=== PATIENT | male | born 1955 | race Caucasian/White ===

== ENCOUNTER 2018-07-03 09:41 | Observation (INO) | payer SELFPAY ==
[2018-07-03 10:14] LABS: #Basophils 0.1 thou/uL (0.0-0.2); #Eosinphils 0.1 thou/uL (0.0-0.7); #Lymphocytes 2.2 thou/uL (1.20-3.40); #Monocytes 0.6 thou/uL (0.11-0.59); #Neutrophils 4.2 thou/uL (1.40-6.50); %Basophils 0.8 % (0.0-1.0); %Eosinophils 1.2 % (0.0-10.0); %Lymphocytes 30.9 % (21.0-51.0); %Monocytes 7.7 % (0.0-10.0); %Neutrophils 59.4 % (42.0-75.0); Hemoglobin 15.4 g/dL (14.0-18.0); Mean Corpuscular Hemoglobin 31.8 pg (27.0-31.0); Mean Corpuscular Volume 93.4 fL (78.0-98.0); Mean Platelet Volume 6.8 fL (7.4-10.4); Platelet Count 264 thou/uL (130-400); RBC Distribution Width 12.6 % (11.5-14.5); Red Blood Cell (RBC) Count 4.86 mill/uL (4.70-6.10); White Blood Cell (WBC) Count 7.1 thou/uL (4.8-10.8)
[2018-07-03 10:37] LABS: ALT (SGPT) 40 U/L (8-55); AST (SGOT) 26 U/L (5-34); Albumin 4.4 g/dL (3.4-4.8); Alkaline Phosphatase 93 U/L (40-150); Anion Gap 15 mmol/L (10-20); BUN (Urea Nitrogen) 16 mg/dL (8.4-25.7); Bilirubin, Total 0.7 mg/dL (0.2-1.2); CK (CPK) 118 U/L (30-200); Calc. Creatinine Clearance 0 mL/min (70-130); Calcium 9.8 mg/dL (7.8-10.44); Carbon Dioxide 23 mmol/L (23-31); Chloride 104 mmol/L (98-107); Estimated GFR-MDRD Greater than 90; Globulin 2.6 g/dL (2.4-3.5); Glucose 120 mg/dL (80-115); Potassium 4.6 mmol/L (3.5-5.1); Sodium 137 mmol/L (136-145)
[2018-07-03] MEDS ORDERED: Nitroglycerin 2% Ointment 1 INCH/1 GM Packet ONE (10:57)
--- NOTE | 2018-07-03 11:05 | RAD ---
TWO VIEWS CHEST: DATE: 07/03/2018. PROVIDED CLINICAL HISTORY: Chest pain. FINDINGS: Comparison 02/16/2015. Cardiac and mediastinal silhouette is within normal limits. No focal consolidation, pleural fluid, o r pneumothorax apparent. IMPRESSION: No evidence for an acute cardiopulmonary process. POS: OFF
[2018-07-03] MEDS ORDERED: Aspirin Chewable 81 MG TAB ONE (11:37)
--- NOTE | 2018-07-03 11:38 | PDOC.FPRHP ---
- History of Present Illness Chief Complaint: Chest pain History of Present Illness: Pt started having chest pain at 0330 this am, waking him from sleep. Pain resolved after 3-4 minutes after walking around. He waited at home at became worries about pain, additionally felt slightly lightheaded and "dingy". He feels tired as well. He had pain at the center of his chest that was deep and sharp without radiation. He denies having that pain before. He denies SOB, nausea, vomiting. Dr. Duncan saw him last month that states that he needed a stent. He reports 2 weeks ago he had numbness on the right side of his head, he blames it on pinched nerves. Has not recurred. ED Course: aspirin, nitro 1" - Allergies/Adverse Reactions Allergies Allergy/AdvReac Type Severity Reaction Status Date / Time No Known Allergies Allergy Verified 07/03/18 17:05 - Home Medications Medication Instructions Recorded Confirmed Type Aspirin 81 mg PO DAILY #0 tab 02/18/15 07/03/18 Rx Gabapentin 300 mg PO QPM #30 capsule 02/18/15 07/03/18 Rx Atorvastatin Calcium 40 mg PO HS 07/03/18 07/03/18 History Carvedilol 3.125 mg PO BID 07/03/18 07/03/18 History Lisinopril [Zestril] 2.5 mg PO DAILY 07/03/18 07/03/18 History Acetaminophen [Tylenol Regular 650 mg PO Q4H PRN tab 07/04/18 Rx Strength] Nicotine [Nicoderm CQ] 14 mg TD Q24HR patch 07/04/18 Rx - History PMHx: HTN, HFrEF (45% per patient) PSHx: Appendix, left wrist surgery FHx: Father at 47 CHF, Mother 50s from breast cancer, sister 61 brain cancer, Brother has DM2 Social: 2 cigars daily. Drinks 6-12 pack a day for years, last drink yesterday. Has never withdrawn and says at time he will go 2-3 days without drinking without issues. Denies current drug use. - Review of Systems General: denies: fever/chills, weight/appetite/sleep changes, night sweats Eyes: denies: vision changes ENT: denies: nasal congestion, rhinorrhea Respiratory: denies: cough, shortness of breath Cardiovascular: reports: chest pain. denies: palpitation Gastrointestinal: denies: nausea, vomiting, diarrhea, constipation Genitourinary: denies: dysuria Skin: denies: rashes, lesions Musculoskeletal: reports: pain (neck and shoulder pain) Neurological: denies: numbness - Vital signs BP: 149/99 HR: 82 RR: 16 Tmax: 97.9 Pox: 95% on ra Wt:108 kg - Physical Exam Constitutional: NAD, awake, alert and oriented, well developed HEENT: normocephalic and atraumatic, EOMI, MMM Neck: trachea midline, no JVD Chest: no-tender to palpation Heart: RRR, normal S1/S2, no murmurs/rubs/gallops, no edema Lungs: CTAB, no respiratory distress Abdomen: soft, non-tender, bowel sounds present Musculoskeletal: normal structure, normal tone Neurological: no focal deficit Skin: no rash/lesions, good turgor Psychiatric: normal mood and affect, good judgment and insight, intact recent and remote memory FMR H&P: Results - Labs Result Diagrams: 07/03/18 09:55 07/03/18 09:55 Lab results: WBC 7.1 thou/uL (4.8-10.8) 07/03/18 09:55 Hgb 15.4 g/dL (14.0-18.0) 07/03/18 09:55 Hct 45.4 % (42.0-52.0) 07/03/18 09:55 MCV 93.4 fL (78.0-98.0) 07/03/18 09:55 Plt Count 264 thou/uL (130-400) 07/03/18 09:55 Neutrophils % 59.4 % (42.0-75.0) 07/03/18 09:55 Sodium 137 mmol/L (136-145) 07/03/18 09:55 Potassium 4.6 mmol/L (3.5-5.1) 07/03/18 09:55 Chloride 104 mmol/L (98-107) 07/03/18 09:55 Carbon Dioxide 23 mmol/L (23-31) 07/03/18 09:55 BUN 16 mg/dL (8.4-25.7) 07/03/18 09:55 Creatinine 0.82 mg/dL (0.7-1.3) 07/03/18 09:55 Glucose 120 mg/dL (80-115) H 07/03/18 09:55 Calcium 9.8 mg/dL (7.8-10.44) 07/03/18 09:55 Total Bilirubin 0.7 mg/dL (0.2-1.2) 07/03/18 09:55 AST 26 U/L (5-34) 07/03/18 09:55 ALT 40 U/L (8-55) 07/03/18 09:55 Alkaline Phosphatase 93 U/L (40-150) 07/03/18 09:55 Creatine Kinase 118 U/L (30-200) 07/03/18 09:55 B-Natriuretic Peptide 11.6 pg/mL (0-100) 07/03/18 09:56 Serum Total Protein 7.0 g/dL (5.8-8.1) 07/03/18 09:55 Albumin 4.4 g/dL (3.4-4.8) 07/03/18 09:55 FMR H&P: A/P - Problem List (1) Atypical chest pain Status: Acute Code(s): R07.89 - OTHER CHEST PAIN (2) Alcohol abuse Status: Chronic Code(s): F10.10 - ALCOHOL ABUSE, UNCOMPLICATED (3) HTN (hypertension) Status: Chronic Code(s): I10 - ESSENTIAL (PRIMARY) HYPERTENSION - Plan This is a 63 yo male with a pmh of HTN, HFrEF that presents for brief episode of chest pain and is admitted for observation. Atypical chest pain - Pain resolved -Trend troponins, first one negative - Heart score 3 - EKG with no acute changes - Consult pt's wire straightener, Dr. Duncan, as patient says he planned to stent him. - Will consider stress, hold carvedilol if stressed HTN -Continue home lisinopril HFrEF -Old Echo, EF 45% - at home on carvedilol, statin, aspirin Alcohol abuse - ASE protocol Chronic neck pain - continue home gabapentin Code: Full Prophylaxis: Lovenox Family: none at bedside Diet: NPO Disposition: admit to telemetry for observation, expected stay <48hrs PCP: Dr. Franco, [facility] Case discussed with Dr. Love FMR H&P: Upper Level - Pertinent history HPI 63 y/o M with hx/o of CHF, ETOH, drug use, & tobacco abuse presents with c/o chest pain that began last night, lasted states that it was significantly worse this morning. Has been waking up in the middle of the night with mild pain and last night was worse. Described as sharp, deep substernal pain lasting approximately 2-3 minutes. Associated with dizziness, diaphoresis. Denies nausea , SOB. Given ASA and Nitro in ED with mild improvement. REVIEW OF SYSTEMS: Gen: no fever, chills, or sweats, no unexplained wt change Resp: no cough, no SOB, no wheeze Card: POS chest pain, diaphoresis, no palpitations - Pertinent findings PHYSICAL EXAMINATION: General: NAD, alert and oriented x3 HEENT: PERRLA, EOMI, normal sclera, oropharynx without erythema or exudate Neck: Supple. Full ROM. Heart/Cardiovascular System: No r/m/g. RRR. Cap refill < 3 seconds, good pulses in all extremities Lungs/Respiratory System: clear to auscultation bilaterally. No increased work of breathing. Room air. Abdomen/Gastro-Intestinal System: non-tender, normal bowel sounds Extremities: Warm extremities. No cyanosis or edema. Neuro: No gross deficits appreciated. CN 2-12 grossly intact Psychiatry: Awake, Alert and cooperative with exam Skin: No lesions, rashes, or ulcers Musculoskeletal: Full ROM, Strength 5/5 in all 4 extremities - Plan Date/Time: 07/03/18 6847 I, Pankaj Galvan, have evaluated this patient and agree with findings/plan as outlined by customer operations intern resident. Pertinent changes/additions are listed here. PROBLEM LISTANDPLAN: # Atypical Chest Pain- Pain resolved after 3-4 minutes and vitals stable. S/p ASA and Nitro administration. ED has consulted cardiology. Trops negative, will trend, no acute ST changes. # HFrEF- ECHO 45% in 2015. Sees Dr Duncan and will ask his recommendations. # ETOH Abuse- ASE protocol, Medications as needed # Tobacco Abuse- Counseled on Cessation. Addendum - Attending - Attending Attestation Date/Time: 07/03/18 [id number] I personally evaluated the patient and discussed the management with Dr. Lorenz and Dr. Galvan I agree with the History, Examination, Assessment and Plan documented above with any addition or exceptions noted below. 63 yo male presenting for evaluation of chest pain. Patient reports a history of positive stress test in the past with need for stenting. Reports has been noticing slight chest discomfort in the access services assistant hours. However, this morning reports chest pain that woke him from sleep. Has history of heart failure. Follows with cards. Pain resolved with getting up. No other associated symptoms. Reports able to physical labor without CELESTIN, chest pain, dizziness, palpitations. Reports he is limited by chronic back pain. VS, imaging and labs reviewed. PE repeated and agree with resident documentation. 1. Chest pain suspicious for angina. Obs overnight for ASC rule out. No evidence of ischemia at present. Stress and ECHO ordered. Cards notified. Continue cardiac medications. ASA added for ACS rule out. Fasting lipids in AM. Continue home meds. Modify as needed. Ghislaine
[2018-07-03] MEDS ORDERED: Ondansetron PF 4 MG/2 ML Vial IVP PRN (12:52)
[2018-07-03] MEDS ORDERED: Acetaminophen 325 MG TAB PO PRN (12:52)
[2018-07-03] MEDS ORDERED: Ondansetron ODT 4 MG TAB PO PRN (12:52)
[2018-07-03 13:17] VITALS: BMI 31.3
[2018-07-03 13:50] LABS: Troponin I Less than 0.010 ng/mL (< 0.028)
[2018-07-03 16:20] LABS: Amphetamine Not Detected (NotDetected); Barbiturates Screen Not Detected (NotDetected); Benzodiazepine Screen Not Detected (NotDetected); Cocaine Metabolite Screen Not Detected (NotDetected); Medtox Control Line Valid? VALID (VALID); Medtox Reader # READER 4; Methadone Not Detected (NotDetected); Methamphetamine Not Detected (NotDetected); Opiate Screen Not Detected (NotDetected); Oxycodone Screen Not Detected (NotDetected); Phencyclidine (PCP) Not Detected (NotDetected); THC/Cannabinoid Screen Not Detected (NotDetected); Tricyclic Screen Not Detected (NotDetected)
[2018-07-03 16:38] LABS: Troponin I Less than 0.010 ng/mL (< 0.028)
[2018-07-03] MEDS ORDERED: Gabapentin 300 MG CAP PO SCH (21:00)
[2018-07-03] MEDS ORDERED: Nicotine 14 MG PATCH TD SCH (21:00)
--- NOTE | 2018-07-03 22:34 | CON ---
DATE OF CONSULTATION: PRIMARY DRAW FURNACE TENDER: Aftab Duncan MD REASON FOR CONSULTATION: Chest pain. HISTORY OF PRESENT ILLNESS: Mr. Alex Galloway is a pleasant 63-year-old gentleman, admitted with chest pain. The patient has a history of a cardiomyopathy in 2014 , had depressed left ventricular function, is ultimately thought to be related in all likelihood to alcohol consumption. The patient made changes lifestyl, he reduced alcohol intake and had improvement in left ventricular function. He was recently seen by Dr. Duncan, 05/21/2018. The patient was doing well, not having chest pain or tightness or pressure. The patient was asymptomatic at that time. The patient tells me that Dr. Duncan told him that he would need to do a heart catheterization, but I do not see that documented from that report. The patient has been doing well up until this morning, had the onset of severe substernal chest pain in the middle of his chest, came to the emergency room. Cardiac enzymes have been negative. I do not see discussion in the chart about the possibility of proceeding to cardiac catheterization. HOME MEDICATIONS: Include; 1. Lisinopril 2.5 mg a day. 2. Gabapentin. 3. Aspirin 81 mg a day. 4. Carvedilol 3.125 mg twice a day. PAST MEDICAL HISTORY: Hypertension, history of heart failure as mentioned above. PAST SURGICAL HISTORY: Appendectomy. FAMILY HISTORY: Mother at age 51, not cardiac related. Father at age 52, he had a myocardial infarction. SOCIAL HISTORY: Tobacco history, he continues to smoke some days, but not every day, about 5 or less, on occasion. The patient states he occasionally drinks "socially." REVIEW OF SYSTEMS: CONSTITUTIONAL: No significant weight gain or loss. VISION: No changes. HEARING: No changes. PULMONARY: No cough or wheezing. GASTROINTESTINAL: No nausea, vomiting, or diarrhea. SKIN: No rashes. NEUROLOGIC: No unilateral weakness or numbness. PSYCHIATRIC: No unusual depression or anxiety. PHYSICAL EXAMINATION: GENERAL: This is a pleasant, well-developed, well-nourished gentleman, in no distress. VITAL SIGNS: Blood pressure 115/66, pulse 70 and regular. LUNGS: Clear. CARDIAC: Normal S1, normal S2. ABDOMEN: Soft, nontender. EXTREMITIES: No clubbing, no cyanosis or edema. SKIN: Warm and dry. PSYCHIATRIC: Mood and affect normal. NEUROLOGIC: Grossly normal. LABORATORY DATA: Cardiac enzymes were all negative. IMAGING: EKGs are normal. ASSESSMENT: 1. Substernal chest pain of uncertain etiology. 2. History of cardiomyopathy, resolved. PLAN: We will go ahead and schedule stress testing, echocardiography. Dr. Duncan to see the patient tomorrow morning. Job ID: [id number] MTDD
--- NOTE | 2018-07-04 06:36 | PDOC.FM ---
- Subjective Subjective: Mr. Galloway denies any recurrent chest pain. No SOB or any other concerns. Had 10 beats V tach overnight while sleeping, asymptomatic. - Objective Vital Signs & Weight: Vital Signs (12 hours) Temp Pulse Resp BP Pulse Ox 07/04/18 03:47 97.6 F 61 16 117/63 93 L 07/03/18 19:10 97.6 F 75 16 109/72 94 L Weight Weight 100.199 kg Result Diagrams: 07/03/18 09:55 07/03/18 09:55 Phys Exam - Physical Examination Constitutional: NAD HEENT: moist MMs Respiratory: no wheezing, clear to auscultation bilateral Cardiovascular: RRR, no significant murmur Gastrointestinal: soft, non-tender, positive bowel sounds Musculoskeletal: no edema Neurological: non-focal Psychiatric: normal affect Skin: normal turgor Dx/Plan (1) Atypical chest pain Code(s): R07.89 - OTHER CHEST PAIN Status: Acute (2) Alcohol abuse Code(s): F10.10 - ALCOHOL ABUSE, UNCOMPLICATED Status: Chronic (3) HTN (hypertension) Code(s): I10 - ESSENTIAL (PRIMARY) HYPERTENSION Status: Chronic - Plan Plan: This is a 63 yo male with a pmh of HTN, HFrEF that presents for brief episode of chest pain and is admitted for observation. Atypical chest pain, resolved - Pain resolved. Heart score 3 - EKG with no acute changes, trop negative - 10 beats asymptomatic V tach overnight - Appreciate cardiology recommendations. Plan for stress and echo today. HTN -Continue home lisinopril HFrEF -Old Echo, EF 45% - at home on carvedilol (held), statin, aspirin Alcohol abuse - ASE protocol Chronic neck pain - continue home gabapentin Code: Full Prophylaxis: Lovenox Diet: NPO Disposition: pending workup PCP: LETICIA Dos Santos Addendum - Attending - Attending Attestation Date/Time: 07/04/18 1101 I personally evaluated the patient and discussed the management with Dr. Lorenz. I agree with the History, Examination, Assessment and Plan documented above with any addition or exceptions noted below. Patient here with ACS r/o in the setting of CHF with reduced EF. Cardiology consulted. Stress and echo today. Had Vtach overnight. Awaiting results and further recs per Cards. Trops negative and BNP reassuring that this is not ACS or exacerbation of CHF related.
[2018-07-04] MEDS ORDERED: Lisinopril 2.5 MG TAB PO SCH (09:00)
[2018-07-04] MEDS ORDERED: Aspirin Chewable 81 MG TAB PO SCH (09:00)
[2018-07-04] MEDS ORDERED: Atorvastatin Calcium 40 MG TAB PO SCH (09:00)
[2018-07-04] MEDS ORDERED: Enoxaparin Sodium 40 MG/0.4 ML SYRINGE SC SCH (09:00)
[2018-07-04] MEDS ORDERED: ADENOSINE 60 MG/20 ML VIAL ONE (11:26)
--- NOTE | 2018-07-04 13:44 | NM ---
Radionucleotide stress and rest myocardial perfusion scan with CT attenuation correction and SPECT im aging Left ventricular wall motion evaluation and ejection fraction HISTORY: Chest pain. FINDINGS: Adenosine protocol. Homogeneous uptake of radiotracer throughout the left ventricular myoca rdium. No focal perfusion defect or reversibility. QGS analysis of gated SPECT images shows no focal wall motion abnormalities. Ejection fraction calcul ated at 46%. IMPRESSION: Normal myocardial perfusion scan showing no evidence of ischemia. Slightly depressed ejection fraction of 46% without focal wall motion abnormalities.
[2018-07-04 15:36] VITALS: BP 137/80; TEMP 97.8
--- NOTE | 2018-07-04 20:39 | PDOC.CTH ---
Cardiology Progress Note - Subjective he is doing well. Chest pain free. - Objective Vital Signs Temp Pulse Resp BP Pulse Ox 07/04/18 15:07 97.8 F 68 16 137/80 95 07/04/18 12:45 97.5 F L 68 16 159/84 H 96 Weight 220 lb 14.4 oz 07/03/18 07/04/18 07/05/18 06:59 06:59 06:59 Intake Total 240 Balance 240 - Physical Examination General/Neuro: alert & oriented x3, NAD Neck: no JVD present Lungs: CTA, unlabored respirations Heart: RRR Abdomen: NT/ND Extremities: other: (no edema) - Telemetry Telemetry Rhythm: NSR - Labs Result Diagrams: 07/03/18 09:55 07/03/18 09:55 Troponin/CKMB Troponin I Less than 0.010 ng/mL (< 0.028) 07/03/18 15:59 - Assessment/Plan 1. Chest pain, atypical. PLAN: - No ischemia on MPI - EF normal on echo - Currently chest pain free, no recurrence since initial episode. - He may discharge home. - If recurrence of chest pain then he will need a LHC.
--- NOTE | 2018-07-05 11:29 | DIS ---
DATE OF ADMISSION: 07/03/2018 DATE OF DISCHARGE: 07/04/2018 RESIDENT: Yamilka Lorenz DO ADMITTING ATTENDING: Maru Love MD DISCHARGE ATTENDING: Iam Daly MD CONSULT: Cardiology, Dr. Duncan. PROCEDURES: 1. 07/03/2018, chest x-ray showed no evidence of acute cardiopulmonary process. 2. 07/04/2018, nuclear medicine stress test showed normal myocardial perfusion scan showing no evidence of ischemia, slightly depressed ejection fraction of 46% without focal wall motion abnormalities. 3. 07/04/2018, echocardiogram showed ejection fraction of 50% to 55%, grade 1/3 diastolic dysfunction, mildly dilated left atrium, mild mitral regurgitation, and mild tricuspid regurgitation. PRIMARY DIAGNOSIS: Atypical chest pain. SECONDARY DIAGNOSES: Hypertension, heart failure with reduced ejection fraction, alcohol abuse, and chronic neck pain. DISCHARGE MEDICATIONS: 1. Aspirin 81 mg p.o. daily. 2. Gabapentin 300 mg p.o. q.p.m. 3. Atorvastatin 40 mg p.o. at bedtime. 4. Carvedilol 3.125 mg p.o. b.i.d. 5. Lisinopril 2.5 mg p.o. daily. 6. Acetaminophen 650 mg p.o. q.4 hours p.r.n. HISTORY OF PRESENT ILLNESS: A 63-year-old male with past medical history of hypertension and CHF, presented for a 3-4 minute period of chest pain that resolved after ambulating and had initially woke him up from his sleep. After hours of waiting at home wandering and being concerned, he decided to present to the ER for evaluation. The patient reported that Dr. Duncan saw him last month and said that he needed a "stent." He was admitted for atypical chest pain and ACS rule out. Troponins were trended and negative. He had no chest pain at any point during the hospitalization and EKG did not show any acute changes. The patient underwent stress test and echocardiogram with results noted above. Dr. Duncan reviewed these results and said he was stable for discharge home. He said if recurrence of chest pain, then he will need LHC. DISPOSITION: Stable. DISCHARGE INSTRUCTIONS: 1. Location: Home. 2. Diet: Heart healthy. 3. Activity: As tolerated. 4. Followup: Follow up with Dr. Duncan in 2 to 3 weeks. Follow up with [facility] in 1 week. Job ID: [id number]
== END 2018-07-04 17:22 | disposition home or self-care (01) ==
LOC: ERS 09:41 → 2SW 11:04
PROVIDERS: ADMIT Student in an Organized Health Care Education/Training Program; ATTEND Student in an Organized Health Care Education/Training Program
DX: R07.2 Precordial pain (principal); I11.0 Hypertensive heart disease with heart failure; I50.20 Unspecified systolic (congestive) heart failure; F17.290 Nicotine dependence, other tobacco product, uncomplicated; F10.10 Alcohol abuse, uncomplicated; G89.29 Other chronic pain; M54.2 Cervicalgia; I42.9 Cardiomyopathy, unspecified; Z79.82 Long term (current) use of aspirin; Z79.899 Other long term (current) drug therapy
CPT/HCPCS: 36415; 71046; 78452; 80053; 80306; 82550; 83880; 84484; 85025; 93005; 93017; 93306; 96372; A9500; G0378; J0153; J1650

== ENCOUNTER 2023-05-03 16:31 | Observation (INO) | payer MEDICARE, SELFPAY ==
[2023-05-03 17:39] LABS: #Eosinphils 0.1 thou/uL (0.0-0.7); #Monocytes 0.6 thou/uL (0.11-0.59); #Neutrophils 6.2 thou/uL (1.40-6.50); %Basophils 0.3 % (0.0-1.0); %Eosinophils 1.3 % (0.0-10.0); %Lymphocytes 20.8 % (21.0-51.0); %Monocytes 6.7 % (0.0-10.0); %Neutrophils 70.7 % (42.0-75.0); Hematocrit 41.8 % (42.0-52.0); Mean Corpuscular HGB CONC 33.5 g/dL (32.0-36.0); Mean Corpuscular Hemoglobin 30.4 pg (27.0-31.0); Mean Corpuscular Volume 90.7 fl (78.0-98.0); Mean Platelet Volume 9.4 fL (7.4-10.4); Platelet Count 299 10x3/uL (130-400); RBC Distribution Width 13.6 % (11.5-14.5); Red Blood Cell (RBC) Count 4.61 mill/uL (4.70-6.10); White Blood Cell (WBC) Count 8.7 10x3/uL (4.8-10.8)
[2023-05-03 17:53] LABS: PTT 31.3 sec (22.9-36.1); Prothrombin Time 13.5 sec (12.0-14.7)
[2023-05-03 17:59] LABS: ALT (SGPT) 21 U/L (8-55); AST (SGOT) 23 U/L (5-34); Albumin 3.5 g/dL (3.4-4.8); Alkaline Phosphatase 81 U/L (40-110); Anion Gap 14 mmol/L (10-20); BUN (Urea Nitrogen) 19 mg/dL (8.4-25.7); Bilirubin, Total 0.4 mg/dL (0.2-1.2); Calc. Creatinine Clearance 0 mL/min (70-130); Calcium 8.7 mg/dL (7.8-10.44); Carbon Dioxide 20 mmol/L (23-31); Chloride 108 mmol/L (98-107); Estimated GFR 102; Globulin 2.4 g/dL (2.4-3.5); Glucose 112 mg/dL (80-115); Potassium 4.3 mmol/L (3.5-5.1); Protein, Total 5.9 g/dL (5.8-8.1); Sodium 138 mmol/L (136-145)
[2023-05-03 18:04] LABS: Troponin I 0.048 ng/mL (< 0.028)
[2023-05-03] MEDS ORDERED: Furosemide 20 MG (2 mL) VIAL ONE (18:12)
[2023-05-03 19:46] LABS: Hemoglobin A1c 5.4 % (4.0-6.0)
[2023-05-03] MEDS ORDERED: Lorazepam 1 MG TAB PO PRN (19:49)
[2023-05-03] MEDS ORDERED: Lorazepam 2 MG/ML VIAL IM PRN (19:49)
[2023-05-03] MEDS ORDERED: Carvedilol 25 MG TAB PO SCH (21:00)
[2023-05-03] MEDS ORDERED: Carvedilol 3.125 MG TAB PO SCH (21:00)
[2023-05-03] MEDS ORDERED: Ibuprofen 200 MG TAB PO PRN (21:34)
[2023-05-03 21:40] LABS: Alcohol Less than 10.0 mg/dL (Less than 10); Cardiac Risk 3.7 (Less than 4.5); Cholesterol 198 mg/dl (< 200 Desired); HDL Cholesterol 53 mg/dL (>60 Neg Risk); LDL Cholesterol, Calculated 125 mg/dL; Triglycerides 100 mg/dL (Less than 150)
[2023-05-03 21:45] LABS: Troponin I 0.035 ng/mL (< 0.028)
[2023-05-03] MEDS: Nicotine 21 MG PATCH TD SCH (22:46)
[2023-05-03] MEDS ORDERED: Diazepam 5 MG TAB ONE (23:04)
[2023-05-03] MEDS ORDERED: Atorvastatin Calcium 40 MG TAB ONE (23:05)
[2023-05-03] MEDS ORDERED: Thiamine HCl 200 MG/2 ML VIAL ONE (23:05)
[2023-05-03] MEDS ORDERED: Famotidine 20 MG TAB ONE (23:05)
[2023-05-03] MEDS: Diazepam 5 MG TAB PO SCH (23:29)
[2023-05-03] MEDS: Atorvastatin Calcium 40 MG TAB PO SCH (23:30)
[2023-05-03] MEDS: Famotidine 20 MG TAB PO SCH (23:30)
[2023-05-03] MEDS: Thiamine HCl 200 MG/2 ML VIAL SLOW IVP SCH (23:38)
[2023-05-04] MEDS ORDERED: Furosemide 40 MG (4 mL) VIAL ONE (00:28)
[2023-05-04] MEDS: Ipratropium/Albuterol 3 ML NEB NEB SCH (00:38)
[2023-05-04] MEDS ORDERED: Acetaminophen 325 MG TAB ONE (00:41)
[2023-05-04] MEDS: Furosemide 40 MG (4 mL) VIAL SLOW IVP SCH (00:48)
[2023-05-04] MEDS: Acetaminophen 325 MG TAB PO PRN (00:48)
[2023-05-04] MEDS ORDERED: Furosemide 40 MG (4 mL) VIAL SLOW IVP SCH (02:00)
[2023-05-04 04:17] LABS: #Eosinphils 0.2 thou/uL (0.0-0.7); #Monocytes 0.7 thou/uL (0.11-0.59); #Neutrophils 4.5 thou/uL (1.40-6.50); %Basophils 0.4 % (0.0-1.0); %Eosinophils 2.2 % (0.0-10.0); %Lymphocytes 34.2 % (21.0-51.0); %Monocytes 8.5 % (0.0-10.0); %Neutrophils 54.5 % (42.0-75.0); Hematocrit 44.9 % (42.0-52.0); Hemoglobin 15.1 g/dL (14.0-18.0); Mean Corpuscular HGB CONC 33.6 g/dL (32.0-36.0); Mean Corpuscular Hemoglobin 30.4 pg (27.0-31.0); Mean Corpuscular Volume 90.5 fl (78.0-98.0); Mean Platelet Volume 9.5 fL (7.4-10.4); Platelet Count 288 10x3/uL (130-400); RBC Distribution Width 13.5 % (11.5-14.5); Red Blood Cell (RBC) Count 4.96 mill/uL (4.70-6.10); White Blood Cell (WBC) Count 8.2 10x3/uL (4.8-10.8)
[2023-05-04] MEDS: Diclofenac 1% 50 GM TOPICAL GEL TP PRN (04:29)
[2023-05-04] MEDS ORDERED: Ondansetron ODT 4 MG TAB ONE (04:40)
[2023-05-04] MEDS: Ondansetron ODT 4 MG TAB PO PRN (04:42)
[2023-05-04 04:57] LABS: ALT (SGPT) 20 U/L (8-55); AST (SGOT) 21 U/L (5-34); Albumin 3.7 g/dL (3.4-4.8); Alkaline Phosphatase 88 U/L (40-110); Anion Gap 15 mmol/L (10-20); BUN (Urea Nitrogen) 20 mg/dL (8.4-25.7); Bilirubin, Total 0.6 mg/dL (0.2-1.2); Calc. Creatinine Clearance 108 mL/min (70-130); Carbon Dioxide 24 mmol/L (23-31); Chloride 104 mmol/L (98-107); Estimated GFR 97; Globulin 2.7 g/dL (2.4-3.5); Glucose 106 mg/dL (80-115); Potassium 3.6 mmol/L (3.5-5.1); Protein, Total 6.4 g/dL (5.8-8.1); Sodium 139 mmol/L (136-145)
[2023-05-04] MEDS ORDERED: Diazepam 5 MG TAB ONE (09:52)
[2023-05-04] MEDS ORDERED: Lisinopril 20 MG TAB ONE (09:52)
[2023-05-04] MEDS ORDERED: Aspirin Chewable 81 MG TAB ONE (09:52)
[2023-05-04] MEDS ORDERED: Folic Acid 1 MG TAB ONE (09:52)
[2023-05-04] MEDS ORDERED: Furosemide 20 MG (2 mL) VIAL ONE (09:52)
[2023-05-04] MEDS ORDERED: Famotidine 20 MG TAB ONE (09:53)
[2023-05-04] MEDS ORDERED: Multivit, Therapeutic 1 TAB ONE (09:53)
[2023-05-04] MEDS ORDERED: Carvedilol 6.25 MG TAB ONE (09:53)
[2023-05-04] MEDS ORDERED: Enoxaparin 40 MG (0.4 mL) SYRINGE ONE (09:53)
[2023-05-04] MEDS: Carvedilol 6.25 MG TAB PO SCH (10:18)
[2023-05-04] MEDS: Aspirin 81 mg Enteric Coated Tablet PO SCH (10:18)
[2023-05-04] MEDS: Diazepam 5 MG TAB PO SCH (10:19)
[2023-05-04] MEDS: Multivit, Therapeutic 1 TAB PO SCH (10:20)
[2023-05-04] MEDS: Enoxaparin 40 MG (0.4 mL) SYRINGE SC SCH (10:21)
[2023-05-04] MEDS: Lisinopril 20 MG TAB PO SCH (10:21)
[2023-05-04] MEDS: Furosemide 20 MG (2 mL) VIAL SLOW IVP SCH (10:21)
[2023-05-04] MEDS: Folic Acid 1 MG TAB PO SCH (10:21)
[2023-05-04] MEDS: Empagliflozin 10 MG TAB PO SCH (10:28)
[2023-05-04 14:23] VITALS: BMI 22.5
[2023-05-04 16:47] VITALS: BP 116/75; TEMP 97.6
[2023-05-04] MEDS ORDERED: Lorazepam 1 MG TAB PO PRN (19:49)
[2023-05-05] MEDS ORDERED: Furosemide 20 MG TAB PO SCH (09:00)
[2023-05-05] MEDS ORDERED: Lorazepam 1 MG TAB PO PRN (19:49)
[2023-05-06] MEDS ORDERED: Lorazepam 0.5 MG TAB PO PRN (19:49)
[2023-05-06] MEDS ORDERED: Thiamine 100 MG TAB PO SCH (20:00)
== END 2023-05-04 18:09 | disposition home or self-care (01) ==
LOC: ERS 16:31 → ERHOLD 18:53 → 2SW 05-04 14:10
PROVIDERS: ADMIT Student in an Organized Health Care Education/Training Program; ATTEND Student in an Organized Health Care Education/Training Program
PROC: B246ZZZ Ultrasonography of Right and Left Heart (ICD-10-PCS; principal; 2023-05-03)
DX: I11.0 Hypertensive heart disease with heart failure (principal); I50.20 Unspecified systolic (congestive) heart failure; R79.89 Other specified abnormal findings of blood chemistry; I42.8 Other cardiomyopathies; I71.21 Aneurysm of the ascending aorta, without rupture; F15.90 Other stimulant use, unspecified, uncomplicated; E78.5 Hyperlipidemia, unspecified; F32.9 Major depressive disorder, single episode, unspecified; Z90.49 Acquired absence of other specified parts of digestive tract; F17.210 Nicotine dependence, cigarettes, uncomplicated; Z79.82 Long term (current) use of aspirin; Z79.899 Other long term (current) drug therapy
CPT/HCPCS: 36415; 71045; 71250; 80053; 80061; 80307; 83036; 83880; 84145; 84443; 84484; 85025; 85610; 85730; 87040; 93005; 93306; 94640; 96372; 96375; 96376; G0378; J1650; J1940; J3411; J7620; Q0162

== ENCOUNTER 2024-04-09 17:33 | Inpatient (IN) | payer MEDICARE ==
[2024-04-09 18:48] LABS: #Basophils 0.04 10x3/uL (0.0-0.2); %Basophils 0.5 % (0.0-1.0); %Eosinophils 1.8 % (0.0-10.0); %Lymphocytes 30.8 % (21.0-51.0); %Monocytes 7.3 % (0.0-10.0); %Neutrophils 59.1 % (42.0-75.0); Hematocrit 37.9 % (42.0-52.0); Hemoglobin 12.6 g/dL (14.0-18.0); Mean Corpuscular HGB CONC 33.2 g/dL (32.0-36.0); Mean Corpuscular Volume 90.2 fL (78.0-98.0); Mean Platelet Volume 9.5 fL (7.4-10.4); Platelet Count 300 10x3/uL (130-400); RBC Distribution Width 13.2 % (11.5-14.5)
[2024-04-09 19:07] LABS: ALT (SGPT) 43 U/L (Less than 45); AST (SGOT) 42 U/L (11-34); Albumin 3.4 g/dL (3.1-4.5); Alkaline Phosphatase 82 U/L (40-110); Anion Gap 13 mmol/L (10-20); BUN (Urea Nitrogen) 16 mg/dL (8.4-25.7); Bilirubin, Total 0.6 mg/dL (0.3-1.2); Calc. Creatinine Clearance 0 mL/min (70-130); Calcium 8.9 mg/dL (7.8-10.44); Carbon Dioxide 20 mmol/L (23-31); Chloride 109 mmol/L (98-107); Estimated GFR 101; Globulin 2.9 g/dL (2.4-3.5); Glucose 91 mg/dL (80-115); Potassium 4.5 mmol/L (3.5-5.1); Protein, Total 6.3 g/dL (5.8-8.1); Sodium 137 mmol/L (136-145)
[2024-04-09 19:10] LABS: Troponin I 0.032 ng/mL (< 0.028)
[2024-04-09] MEDS ORDERED: Furosemide 40 MG (4 mL) VIAL ONE (20:06)
[2024-04-09] MEDS ORDERED: Nitroglycerin 2% Ointment 1 INCH/1 GM Packet ONE (20:07)
[2024-04-09] MEDS ORDERED: Aspirin Chewable 81 MG TAB ONE (20:07)
[2024-04-09] MEDS ORDERED: Ondansetron ODT 4 MG TAB PO PRN (21:14)
[2024-04-09 22:24] VITALS: BMI 24.7
[2024-04-09 23:50] LABS: Troponin I 0.038 ng/mL (< 0.028)
[2024-04-10 04:07] LABS: #Basophils 0.03 10x3/uL (0.0-0.2); %Basophils 0.4 % (0.0-1.0); %Eosinophils 1.8 % (0.0-10.0); %Lymphocytes 32.7 % (21.0-51.0); %Monocytes 9.8 % (0.0-10.0); %Neutrophils 55.2 % (42.0-75.0); Hematocrit 38.6 % (42.0-52.0); Hemoglobin 12.9 g/dL (14.0-18.0); Mean Corpuscular HGB CONC 33.4 g/dL (32.0-36.0); Mean Corpuscular Hemoglobin 30.3 pg (27.0-31.0); Mean Corpuscular Volume 90.6 fL (78.0-98.0); Mean Platelet Volume 9.6 fL (7.4-10.4); Platelet Count 323 10x3/uL (130-400); RBC Distribution Width 13.1 % (11.5-14.5); Red Blood Cell (RBC) Count 4.26 mill/uL (4.70-6.10)
[2024-04-10 04:33] LABS: Anion Gap 14 mmol/L (10-20); BUN (Urea Nitrogen) 17 mg/dL (8.4-25.7); Calc. Creatinine Clearance 110 mL/min (70-130); Calcium 8.8 mg/dL (7.8-10.44); Carbon Dioxide 22 mmol/L (23-31); Chloride 105 mmol/L (98-107); Estimated GFR 100; Glucose 83 mg/dL (80-115); Potassium 3.8 mmol/L (3.5-5.1); Sodium 137 mmol/L (136-145)
[2024-04-10 04:37] LABS: Troponin I 0.036 ng/mL (< 0.028)
[2024-04-10] MEDS: Enoxaparin 40 MG (0.4 mL) SYRINGE SC SCH (09:19)
[2024-04-10] MEDS: Spironolactone 25 MG TAB PO SCH (09:19)
[2024-04-10] MEDS: Gabapentin 300 MG CAP PO SCH (09:20)
[2024-04-10] MEDS: Famotidine 20 MG TAB PO SCH (09:20)
[2024-04-10] MEDS: Sacubitril 24MG/Valsartan 26 MG TAB PO SCH (09:20)
[2024-04-10] MEDS: Furosemide 40 MG TAB PO SCH (09:20)
[2024-04-10] MEDS: Dapagliflozin Propanediol 10 MG TAB PO SCH (09:20)
[2024-04-10] MEDS: Acetaminophen 325 MG TAB PO PRN (09:20)
[2024-04-10 09:52] VITALS: BMI 24.2
[2024-04-10] MEDS ORDERED: Metoprolol Succinate XL 25 MG ER.TAB PO SCH (11:15)
[2024-04-10 12:26] LABS: Amphetamine Detected (NotDetected); Barbiturates Screen Not Detected (NotDetected); Benzodiazepine Screen Not Detected (NotDetected); Cocaine Metabolite Screen Not Detected (NotDetected); Methadone Not Detected (NotDetected); Methamphetamine Detected (NotDetected); Opiate Screen Not Detected (NotDetected); Oxycodone Screen Not Detected (NotDetected); Phencyclidine (PCP) Not Detected (NotDetected); THC/Cannabinoid Screen Not Detected (NotDetected); Tricyclic Screen Not Detected (NotDetected)
[2024-04-10] MEDS ORDERED: Furosemide 40 MG (4 mL) VIAL SLOW IVP SCH (14:00)
[2024-04-10] MEDS: Furosemide 40 MG (4 mL) VIAL SLOW IVP SCH (14:08)
[2024-04-10] MEDS: Carvedilol 3.125 MG TAB PO SCH (16:39)
[2024-04-10] MEDS: Atorvastatin Calcium 40 MG TAB PO SCH (20:43)
[2024-04-11 04:18] LABS: #Basophils 0.03 10x3/uL (0.0-0.2); %Basophils 0.4 % (0.0-1.0); %Eosinophils 1.4 % (0.0-10.0); %Lymphocytes 39.4 % (21.0-51.0); %Monocytes 8.9 % (0.0-10.0); %Neutrophils 49.5 % (42.0-75.0); Hematocrit 46.6 % (42.0-52.0); Hemoglobin 15.4 g/dL (14.0-18.0); Mean Corpuscular Hemoglobin 29.6 pg (27.0-31.0); Mean Corpuscular Volume 89.6 fL (78.0-98.0); Mean Platelet Volume 9.4 fL (7.4-10.4); Platelet Count 385 10x3/uL (130-400); RBC Distribution Width 13.2 % (11.5-14.5)
[2024-04-11 04:32] LABS: Anion Gap 13 mmol/L (10-20); BUN (Urea Nitrogen) 30 mg/dL (8.4-25.7); Calc. Creatinine Clearance 92 mL/min (70-130); Calcium 9.2 mg/dL (7.8-10.44); Carbon Dioxide 25 mmol/L (23-31); Chloride 104 mmol/L (98-107); Estimated GFR 96; Glucose 102 mg/dL (80-115); Potassium 3.9 mmol/L (3.5-5.1); Sodium 138 mmol/L (136-145)
[2024-04-11] MEDS ORDERED: Furosemide 40 MG (4 mL) VIAL SLOW IVP SCH ×2 (06:00)
[2024-04-11] MEDS ORDERED: Metoprolol Succinate XL 25 MG ER.TAB PO SCH (09:00)
[2024-04-11] MEDS: Furosemide 40 MG (4 mL) VIAL SLOW IVP SCH (09:26)
[2024-04-12 06:15] LABS: #Basophils 0.03 10x3/uL (0.0-0.2); %Basophils 0.4 % (0.0-1.0); %Eosinophils 1.6 % (0.0-10.0); %Lymphocytes 40.7 % (21.0-51.0); %Monocytes 8.1 % (0.0-10.0); %Neutrophils 48.8 % (42.0-75.0); Hematocrit 46.6 % (42.0-52.0); Hemoglobin 15.5 g/dL (14.0-18.0); Mean Corpuscular HGB CONC 33.3 g/dL (32.0-36.0); Mean Corpuscular Volume 90.1 fL (78.0-98.0); Mean Platelet Volume 9.4 fL (7.4-10.4); Platelet Count 383 10x3/uL (130-400); RBC Distribution Width 13.2 % (11.5-14.5); Red Blood Cell (RBC) Count 5.17 mill/uL (4.70-6.10)
[2024-04-12 06:28] LABS: Anion Gap 13 mmol/L (10-20); BUN (Urea Nitrogen) 34 mg/dL (8.4-25.7); Calc. Creatinine Clearance 92 mL/min (70-130); Carbon Dioxide 25 mmol/L (23-31); Chloride 103 mmol/L (98-107); Estimated GFR 96; Glucose 102 mg/dL (80-115); Potassium 4.3 mmol/L (3.5-5.1); Sodium 137 mmol/L (136-145)
[2024-04-12] MEDS: Furosemide 20 MG (2 mL) VIAL SLOW IVP SCH (08:11)
[2024-04-12] MEDS: Lisinopril 10 MG TAB PO SCH (14:28)
[2024-04-12] MEDS: Lactated Ringer's 500 ML IV SCH (21:48)
[2024-04-12 22:16] LABS: Phosphorus 4.7 mg/dL (2.5-4.5)
[2024-04-12 22:17] LABS: Anion Gap 13 mmol/L (10-20); BUN (Urea Nitrogen) 39 mg/dL (8.4-25.7); Calc. Creatinine Clearance 63 mL/min (70-130); Calcium 8.5 mg/dL (7.8-10.44); Carbon Dioxide 24 mmol/L (23-31); Chloride 101 mmol/L (98-107); Estimated GFR 66; Glucose 103 mg/dL (80-115); Lactic Acid 1.61 mmol/L (0.50-2.20); Magnesium 2.2 mg/dL (1.6-2.6); Potassium 3.9 mmol/L (3.5-5.1); Sodium 134 mmol/L (136-145)
[2024-04-12 22:23] LABS: Troponin I 0.025 ng/mL (< 0.028)
[2024-04-13 05:18] LABS: #Basophils Less than 0.03 10x3/uL (0.0-0.2); %Basophils 0.2 % (0.0-1.0); %Eosinophils 1.6 % (0.0-10.0); %Lymphocytes 31.1 % (21.0-51.0); %Monocytes 7.3 % (0.0-10.0); %Neutrophils 59.6 % (42.0-75.0); Hematocrit 42.6 % (42.0-52.0); Hemoglobin 14.2 g/dL (14.0-18.0); Mean Corpuscular HGB CONC 33.3 g/dL (32.0-36.0); Mean Corpuscular Hemoglobin 29.9 pg (27.0-31.0); Mean Corpuscular Volume 89.7 fL (78.0-98.0); Mean Platelet Volume 9.7 fL (7.4-10.4); Platelet Count 352 10x3/uL (130-400); RBC Distribution Width 13.2 % (11.5-14.5); Red Blood Cell (RBC) Count 4.75 mill/uL (4.70-6.10)
[2024-04-13 05:33] LABS: Anion Gap 12 mmol/L (10-20); BUN (Urea Nitrogen) 33 mg/dL (8.4-25.7); Calc. Creatinine Clearance 83 mL/min (70-130); Calcium 8.5 mg/dL (7.8-10.44); Carbon Dioxide 25 mmol/L (23-31); Chloride 103 mmol/L (98-107); Estimated GFR 92; Glucose 95 mg/dL (80-115); Potassium 4.1 mmol/L (3.5-5.1); Sodium 136 mmol/L (136-145)
[2024-04-13] MEDS ORDERED: Furosemide 20 MG (2 mL) VIAL SLOW IVP SCH (09:00)
[2024-04-13] MEDS ORDERED: Lisinopril 10 MG TAB PO SCH (09:00)
[2024-04-13] MEDS: HYDROcodone/Acetaminophen 5/325 mg Tablet PO SCH (23:34)
[2024-04-14 04:45] LABS: #Basophils 0.03 10x3/uL (0.0-0.2); %Basophils 0.4 % (0.0-1.0); %Eosinophils 2.4 % (0.0-10.0); %Lymphocytes 50.5 % (21.0-51.0); %Monocytes 6.9 % (0.0-10.0); %Neutrophils 39.5 % (42.0-75.0); Hematocrit 39.2 % (42.0-52.0); Hemoglobin 12.8 g/dL (14.0-18.0); Mean Corpuscular HGB CONC 32.7 g/dL (32.0-36.0); Mean Corpuscular Volume 91.8 fL (78.0-98.0); Mean Platelet Volume 9.6 fL (7.4-10.4); Platelet Count 295 10x3/uL (130-400); RBC Distribution Width 13.1 % (11.5-14.5); Red Blood Cell (RBC) Count 4.27 mill/uL (4.70-6.10)
[2024-04-14 05:07] LABS: Anion Gap 12 mmol/L (10-20); BUN (Urea Nitrogen) 28 mg/dL (8.4-25.7); Calc. Creatinine Clearance 102 mL/min (70-130); Calcium 8.4 mg/dL (7.8-10.44); Carbon Dioxide 25 mmol/L (23-31); Chloride 105 mmol/L (98-107); Estimated GFR 99; Glucose 88 mg/dL (80-115); Potassium 4.5 mmol/L (3.5-5.1); Sodium 137 mmol/L (136-145)
[2024-04-14 17:28] VITALS: BP 120/70; TEMP 98.7
[2024-04-15] MEDS ORDERED: Lisinopril 2.5 MG TAB PO SCH (09:00)
== END 2024-04-14 18:16 | disposition home or self-care (01) | DRG 291 ==
LOC: ERS 17:33 → INTOOBSV 21:17 → 2NO 21:17 → OBSVTOIN 04-11 07:42
PROVIDERS: ADMIT Family Medicine; ATTEND Family Medicine
DX: I11.0 Hypertensive heart disease with heart failure (principal); I50.23 Acute on chronic systolic (congestive) heart failure; I42.8 Other cardiomyopathies; F10.10 Alcohol abuse, uncomplicated; F15.10 Other stimulant abuse, uncomplicated; D63.8 Anemia in other chronic diseases classified elsewhere; I95.9 Hypotension, unspecified; I44.30 Unspecified atrioventricular block; Z79.02 Long term (current) use of antithrombotics/antiplatelets; Z79.899 Other long term (current) drug therapy; Z90.49 Acquired absence of other specified parts of digestive tract; Z91.148 Patient's other noncompliance with medication regimen for other reason
CPT/HCPCS: 36415; 71046; 80048; 80053; 80306; 80307; 83605; 83735; 83880; 84100; 84145; 84484; 85025; 87428; 93005; 93010; 93798; 96372; 96374; 96376; G0378; J1650; J1940; J7120

== ENCOUNTER 2024-10-13 21:22 | Inpatient (IN) | payer MEDICARE ==
[~2024-10-13 21:22] MED LIST: Iopamidol-370 76% 500 ML MDV (1 ML CHARGE) ONE
[2024-10-13 21:49] LABS: #Basophils 0.06 10x3/uL (0.0-0.2); #Eosinophils 0.06 10x3/uL (0.0-0.7); #Monocytes 1.01 10x3/uL (0.11-0.59); #Neutrophils 7.82 10x3/uL (1.40-6.50); %Basophils 0.5 % (0.0-1.0); %Eosinophils 0.5 % (0.0-10.0); %Lymphocytes 19.7 % (21.0-51.0); %Monocytes 9.0 % (0.0-10.0); %Neutrophils 69.9 % (42.0-75.0); Hematocrit 41.7 % (42.0-52.0); Hemoglobin 13.6 g/dL (14.0-18.0); Mean Corpuscular Hemoglobin 29.9 pg (27.0-31.0); Mean Corpuscular Volume 91.6 fL (78.0-98.0); Platelet Count 483 10x3/uL (130-400); Red Blood Cell (RBC) Count 4.55 mill/uL (4.70-6.10); White Blood Cell (WBC) Count 11.21 10x3/uL (4.8-10.8)
[2024-10-13 22:08] LABS: ALT (SGPT) 102 U/L (Less than 45); AST (SGOT) 98 U/L (11-34); Albumin 3.2 g/dL (3.1-4.5); Alkaline Phosphatase 597 U/L (40-110); Anion Gap 18 mmol/L (10-20); BUN (Urea Nitrogen) 29 mg/dL (8.4-25.7); Bilirubin, Total 0.7 mg/dL (0.3-1.2); Calc. Creatinine Clearance 0 mL/min (70-130); Calcium 9.2 mg/dL (7.8-10.44); Carbon Dioxide 24 mmol/L (23-31); Chloride 97 mmol/L (98-107); Globulin 4.3 g/dL (2.4-3.5); Glucose 148 mg/dL (80-115); Magnesium 2.3 mg/dL (1.6-2.6); Potassium 3.4 mmol/L (3.5-5.1); Sodium 136 mmol/L (136-145)
[2024-10-13 22:09] LABS: INR-International Normal Ratio 1.3; PTT 41.0 sec (22.9-36.1); Prothrombin Time 16.3 sec (12.0-14.7)
[2024-10-13] MEDS ORDERED: dilTIAZem 25 MG/5 ML VIAL ONE (22:23)
[2024-10-13] MEDS ORDERED: Acetaminophen 325 MG TAB PO PRN (23:36)
[2024-10-13] MEDS ORDERED: Furosemide 20 MG (2 mL) VIAL ONE (23:57)
[2024-10-14 00:34] VITALS: BMI 24.1
[2024-10-14] MEDS ORDERED: Diltiazem HCl/D5W 125 MG in Premix 1 BAG IVPB SCH (00:45)
[2024-10-14] MEDS: Enoxaparin 80 MG (0.8 mL) SYRINGE SC SCH (00:54)
[2024-10-14 02:22] LABS: Cocaine Metabolite Screen Negative (Negative); THC/Cannabinoid Screen Negative (Negative); Tricyclic Screen Negative (Negative)
[2024-10-14 03:45] LABS: #Basophils 0.06 10x3/uL (0.0-0.2); #Eosinophils 0.12 10x3/uL (0.0-0.7); #Monocytes 0.95 10x3/uL (0.11-0.59); #Neutrophils 6.95 10x3/uL (1.40-6.50); %Basophils 0.6 % (0.0-1.0); %Eosinophils 1.1 % (0.0-10.0); %Lymphocytes 22.7 % (21.0-51.0); %Monocytes 9.1 % (0.0-10.0); %Neutrophils 66.2 % (42.0-75.0); Hematocrit 35.5 % (42.0-52.0); Hemoglobin 11.7 g/dL (14.0-18.0); Mean Corpuscular Hemoglobin 30.1 pg (27.0-31.0); Mean Corpuscular Volume 91.3 fL (78.0-98.0); Platelet Count 359 10x3/uL (130-400); Red Blood Cell (RBC) Count 3.89 mill/uL (4.70-6.10); White Blood Cell (WBC) Count 10.49 10x3/uL (4.8-10.8)
[2024-10-14 04:00] LABS: INR-International Normal Ratio 1.4; PTT 52.0 sec (22.9-36.1); Prothrombin Time 17.0 sec (12.0-14.7)
[2024-10-14 04:02] LABS: Cardiac Risk 5.3 (Less than 4.5); Cholesterol 139.0 mg/dl (< 200 Desired); HDL Cholesterol 26.0 mg/dL (>60 Neg Risk); LDL Cholesterol, Calculated 98.0 mg/dL; Triglycerides 74.0 mg/dL (Less than 150)
[2024-10-14 04:03] LABS: ALT (SGPT) 82 U/L (Less than 45); AST (SGOT) 66 U/L (11-34); Albumin 2.5 g/dL (3.1-4.5); Alkaline Phosphatase 477 U/L (40-110); Anion Gap 15 mmol/L (10-20); BUN (Urea Nitrogen) 23 mg/dL (8.4-25.7); Bilirubin, Total 0.8 mg/dL (0.3-1.2); Calc. Creatinine Clearance 112 mL/min (70-130); Calcium 8.1 mg/dL (7.8-10.44); Carbon Dioxide 23 mmol/L (23-31); Chloride 101 mmol/L (98-107); Globulin 3.2 g/dL (2.4-3.5); Glucose 94 mg/dL (80-115); Potassium 3.4 mmol/L (3.5-5.1); Sodium 136 mmol/L (136-145)
[2024-10-14 07:46] LABS: Magnesium 2.0 mg/dL (1.6-2.6)
[2024-10-14] MEDS: Folic Acid 1 MG TAB PO SCH (08:09)
[2024-10-14] MEDS: Multivit, Therapeutic 1 TAB PO SCH (08:09)
[2024-10-14] MEDS: Transdermal Patch Removal TOP SCH (13:22)
[2024-10-14] MEDS: Furosemide 100 MG (10 mL) VIAL SLOW IVP SCH (20:25)
[2024-10-14 22:48] LABS: #Basophils 0.04 10x3/uL (0.0-0.2); #Eosinophils Less than 0.03 10x3/uL (0.0-0.7); #Monocytes 0.83 10x3/uL (0.11-0.59); #Neutrophils 7.56 10x3/uL (1.40-6.50); %Basophils 0.4 % (0.0-1.0); %Eosinophils 0.1 % (0.0-10.0); %Lymphocytes 11.3 % (21.0-51.0); %Monocytes 8.7 % (0.0-10.0); %Neutrophils 78.8 % (42.0-75.0); Hematocrit 42.7 % (42.0-52.0); Hemoglobin 14.0 g/dL (14.0-18.0); Mean Corpuscular Hemoglobin 30.7 pg (27.0-31.0); Mean Corpuscular Volume 93.6 fL (78.0-98.0); Platelet Count 521 10x3/uL (130-400); Red Blood Cell (RBC) Count 4.56 mill/uL (4.70-6.10); White Blood Cell (WBC) Count 9.59 10x3/uL (4.8-10.8)
[2024-10-14 22:53] LABS: Actual Bicarbonate (HCO3v) 21.7 mEq/L (22-28); Base Excess -4.3 mEq/L (-2.0 to +3.0); Calcium, Ionized (venous) 1.06 mmol/L (1.16-1.32); Chloride (VBG) 99 mmol/L (98-106); Hematocrit-VBG 44 % (42.0-52.0); Hemoglobin (Hb) 14.9 g/dL (12.6-17.4); Potassium (VBG) 4.42 mmol/L (3.70-5.30); Sodium 135 mmol/L (133-146)
[2024-10-14 23:00] LABS: ALT (SGPT) 1052 U/L (Less than 45); AST (SGOT) 1442 U/L (11-34); Albumin 2.9 g/dL (3.1-4.5); Alkaline Phosphatase 554 U/L (40-110); Anion Gap 20 mmol/L (10-20); BUN (Urea Nitrogen) 30 mg/dL (8.4-25.7); Bilirubin, Total 1.5 mg/dL (0.3-1.2); Calc. Creatinine Clearance 78 mL/min (70-130); Calcium 8.7 mg/dL (7.8-10.44); Carbon Dioxide 20 mmol/L (23-31); Chloride 101 mmol/L (98-107); Globulin 3.6 g/dL (2.4-3.5); Glucose 138 mg/dL (80-115); Magnesium 2.4 mg/dL (1.6-2.6); Potassium 4.7 mmol/L (3.5-5.1); Sodium 136 mmol/L (136-145)
[2024-10-15 00:21] LABS: CAUTI Indications for Culture Fever or rigors; Glucose, Urine (Dipstick) 150 mg/dL (Negative); Leukocyte Negative Leu/uL (Negative); Protein, Urine (Dipstick) Negative (Neg-Trace); RBC/HPF 0-3 HPF (0-3); Specific Gravity, Urine 1.006 (1.002-1.036); WBC/HPF None Seen HPF (0-3)
[2024-10-15 00:25] LABS: Bacteria/HPF 1+ HPF (None Seen)
[2024-10-15 00:26] LABS: Urine Culture Reflex No No
[2024-10-15] MEDS: cefTRIAXone\\ROCEPHIN 2 GM in Sodium Chloride 0.9% 100 ML IVPB SCH (00:31)
[2024-10-15] MEDS: Melatonin 3 MG TAB PO SCH (00:43)
[2024-10-15 03:43] LABS: ALT (SGPT) 2223 U/L (Less than 45); AST (SGOT) 3935 U/L (11-34); Albumin 2.6 g/dL (3.1-4.5); Alkaline Phosphatase 496 U/L (40-110); Anion Gap 18 mmol/L (10-20); BUN (Urea Nitrogen) 31 mg/dL (8.4-25.7); Bilirubin, Total 1.0 mg/dL (0.3-1.2); Calc. Creatinine Clearance 85 mL/min (70-130); Calcium 8.2 mg/dL (7.8-10.44); Carbon Dioxide 22 mmol/L (23-31); Chloride 101 mmol/L (98-107); Globulin 3.3 g/dL (2.4-3.5); Glucose 109 mg/dL (80-115); Magnesium 2.1 mg/dL (1.6-2.6); Potassium 3.7 mmol/L (3.5-5.1); Sodium 137 mmol/L (136-145)
[2024-10-15 03:45] LABS: #Basophils Less than 0.03 10x3/uL (0.0-0.2); #Eosinophils Less than 0.03 10x3/uL (0.0-0.7); #Monocytes 0.80 10x3/uL (0.11-0.59); #Neutrophils 8.73 10x3/uL (1.40-6.50); %Basophils 0.2 % (0.0-1.0); %Eosinophils 0.1 % (0.0-10.0); %Lymphocytes 12.6 % (21.0-51.0); %Monocytes 7.3 % (0.0-10.0); %Neutrophils 79.2 % (42.0-75.0); Hematocrit 37.8 % (42.0-52.0); Hemoglobin 12.3 g/dL (14.0-18.0); Mean Corpuscular Hemoglobin 29.6 pg (27.0-31.0); Mean Corpuscular Volume 91.1 fL (78.0-98.0); Platelet Count 390 10x3/uL (130-400); Red Blood Cell (RBC) Count 4.15 mill/uL (4.70-6.10); White Blood Cell (WBC) Count 11.02 10x3/uL (4.8-10.8)
[2024-10-15 04:24] LABS: Hep A IgM AB NONREACTIVE (NonReactive); Hep A IgM S/CO 0.19 S/CO (0-0.79); Hep B Core IgM Index 0.09 S/CO (0-0.79); Hep B Surf Ag NONREACTIVE S/CO (NonReactive); Hep C IgG Ab NONREACTIVE S/CO (NonReactive); Hep C Index 0.06 S/CO (0-0.79)
[2024-10-15] MEDS: Furosemide 40 MG (4 mL) VIAL SLOW IVP SCH ×2 (06:16→13:14)
[2024-10-15 11:38] LABS: INR-International Normal Ratio 1.5; PTT 43.2 sec (22.9-36.1); Prothrombin Time 18.3 sec (12.0-14.7)
[2024-10-15] MEDS: Enoxaparin 80 MG (0.8 mL) SYRINGE SC SCH ×2 (13:14→21:14)
[2024-10-15] MEDS: Carvedilol 3.125 MG TAB PO SCH (17:00)
[2024-10-16 06:03] LABS: #Basophils 0.06 10x3/uL (0.0-0.2); #Eosinophils 0.19 10x3/uL (0.0-0.7); #Monocytes 0.43 10x3/uL (0.11-0.59); #Neutrophils 5.05 10x3/uL (1.40-6.50); %Basophils 0.8 % (0.0-1.0); %Eosinophils 2.7 % (0.0-10.0); %Lymphocytes 18.9 % (21.0-51.0); %Monocytes 6.1 % (0.0-10.0); %Neutrophils 71.1 % (42.0-75.0); Hematocrit 38.2 % (42.0-52.0); Hemoglobin 12.3 g/dL (14.0-18.0); Mean Corpuscular Hemoglobin 29.7 pg (27.0-31.0); Mean Corpuscular Volume 92.3 fL (78.0-98.0); Platelet Count 393 10x3/uL (130-400); Red Blood Cell (RBC) Count 4.14 mill/uL (4.70-6.10); White Blood Cell (WBC) Count 7.10 10x3/uL (4.8-10.8)
[2024-10-16 06:09] LABS: INR-International Normal Ratio 1.5; PTT 39.0 sec (22.9-36.1); Prothrombin Time 17.8 sec (12.0-14.7)
[2024-10-16 06:19] LABS: ALT (SGPT) 1642 U/L (Less than 45); AST (SGOT) 1522 U/L (11-34); Albumin 2.5 g/dL (3.1-4.5); Alkaline Phosphatase 391 U/L (40-110); Anion Gap 12 mmol/L (10-20); BUN (Urea Nitrogen) 26 mg/dL (8.4-25.7); Bilirubin, Total 0.6 mg/dL (0.3-1.2); Calc. Creatinine Clearance 94 mL/min (70-130); Calcium 7.8 mg/dL (7.8-10.44); Carbon Dioxide 26 mmol/L (23-31); Chloride 103 mmol/L (98-107); Globulin 2.8 g/dL (2.4-3.5); Glucose 97 mg/dL (80-115); Magnesium 1.9 mg/dL (1.6-2.6); Potassium 3.1 mmol/L (3.5-5.1); Sodium 138 mmol/L (136-145)
[2024-10-16] MEDS: Potassium Chloride 20 MEQ in Premix 1 BAG IVPB SCH (09:49)
[2024-10-16] MEDS: Transdermal Patch Removal TOP SCH (10:02)
[2024-10-16] MEDS: Aspirin 81 mg Enteric Coated Tablet PO SCH ×2 (10:07→10:12)
[2024-10-16] MEDS: Dapagliflozin Propanediol 10 MG TAB PO SCH ×2 (10:07→10:13)
[2024-10-16] MEDS: Melatonin 3 MG TAB PO PRN (21:48)
[2024-10-17 05:31] LABS: #Basophils 0.05 10x3/uL (0.0-0.2); #Eosinophils 0.34 10x3/uL (0.0-0.7); #Monocytes 0.70 10x3/uL (0.11-0.59); #Neutrophils 5.17 10x3/uL (1.40-6.50); %Basophils 0.6 % (0.0-1.0); %Eosinophils 4.0 % (0.0-10.0); %Lymphocytes 25.9 % (21.0-51.0); %Monocytes 8.2 % (0.0-10.0); %Neutrophils 60.7 % (42.0-75.0); Hematocrit 41.1 % (42.0-52.0); Hemoglobin 13.0 g/dL (14.0-18.0); Mean Corpuscular Hemoglobin 29.2 pg (27.0-31.0); Mean Corpuscular Volume 92.4 fL (78.0-98.0); Platelet Count 410 10x3/uL (130-400); Red Blood Cell (RBC) Count 4.45 mill/uL (4.70-6.10); White Blood Cell (WBC) Count 8.51 10x3/uL (4.8-10.8)
[2024-10-17 05:36] LABS: INR-International Normal Ratio 1.3; PTT 39.6 sec (22.9-36.1); Prothrombin Time 16.6 sec (12.0-14.7)
[2024-10-17 05:56] LABS: ALT (SGPT) 1738 U/L (Less than 45); AST (SGOT) 1282 U/L (11-34); Albumin 2.7 g/dL (3.1-4.5); Alkaline Phosphatase 350 U/L (40-110); Anion Gap 13 mmol/L (10-20); BUN (Urea Nitrogen) 22 mg/dL (8.4-25.7); Bilirubin, Total 0.6 mg/dL (0.3-1.2); Calc. Creatinine Clearance 100 mL/min (70-130); Calcium 8.2 mg/dL (7.8-10.44); Carbon Dioxide 29 mmol/L (23-31); Chloride 102 mmol/L (98-107); Globulin 3.0 g/dL (2.4-3.5); Glucose 99 mg/dL (80-115); Magnesium 2.1 mg/dL (1.6-2.6); Potassium 3.2 mmol/L (3.5-5.1); Sodium 141 mmol/L (136-145)
[2024-10-17] MEDS: Thiamine 100 MG TAB PO SCH (09:08)
[2024-10-17] MEDS: PNEUMOC 20-VAL CONJ-DIP CRM/PF 0.5 ML SYRINGE IM ONE (09:11)
[2024-10-17 11:44] LABS: dsDNA IgG Antibody 1.0 IU/mL (<10 Negative)
[2024-10-17 12:42] LABS: ANA Symphony (Qualitative) Negative (Negative); ANA Symphony (Quantitative) Less than 0.1 Ratio (< 0.7 Negative)
[2024-10-18 04:45] LABS: #Basophils 0.05 10x3/uL (0.0-0.2); #Eosinophils 0.25 10x3/uL (0.0-0.7); #Monocytes 0.68 10x3/uL (0.11-0.59); #Neutrophils 3.58 10x3/uL (1.40-6.50); %Basophils 0.7 % (0.0-1.0); %Eosinophils 3.6 % (0.0-10.0); %Lymphocytes 34.2 % (21.0-51.0); %Monocytes 9.7 % (0.0-10.0); %Neutrophils 50.9 % (42.0-75.0); Hematocrit 43.2 % (42.0-52.0); Hemoglobin 13.8 g/dL (14.0-18.0); Mean Corpuscular Hemoglobin 29.2 pg (27.0-31.0); Mean Corpuscular Volume 91.3 fL (78.0-98.0); Platelet Count 400 10x3/uL (130-400); Red Blood Cell (RBC) Count 4.73 mill/uL (4.70-6.10); White Blood Cell (WBC) Count 7.02 10x3/uL (4.8-10.8)
[2024-10-18 05:01] LABS: INR-International Normal Ratio 1.3; PTT 37.8 sec (22.9-36.1); Prothrombin Time 16.8 sec (12.0-14.7)
[2024-10-18 05:12] LABS: ALT (SGPT) 1938 U/L (Less than 45); AST (SGOT) 1575 U/L (11-34); Albumin 2.8 g/dL (3.1-4.5); Alkaline Phosphatase 313 U/L (40-110); Anion Gap 15 mmol/L (10-20); BUN (Urea Nitrogen) 30 mg/dL (8.4-25.7); Bilirubin, Total 0.5 mg/dL (0.3-1.2); Calc. Creatinine Clearance 100 mL/min (70-130); Calcium 8.6 mg/dL (7.8-10.44); Carbon Dioxide 29 mmol/L (23-31); Chloride 102 mmol/L (98-107); Globulin 3.2 g/dL (2.4-3.5); Glucose 87 mg/dL (80-115); Magnesium 2.1 mg/dL (1.6-2.6); Potassium 3.4 mmol/L (3.5-5.1); Sodium 143 mmol/L (136-145)
[2024-10-19 04:48] LABS: #Basophils 0.05 10x3/uL (0.0-0.2); #Eosinophils 0.30 10x3/uL (0.0-0.7); #Monocytes 0.62 10x3/uL (0.11-0.59); #Neutrophils 4.12 10x3/uL (1.40-6.50); %Basophils 0.7 % (0.0-1.0); %Eosinophils 3.9 % (0.0-10.0); %Lymphocytes 33.2 % (21.0-51.0); %Monocytes 8.1 % (0.0-10.0); %Neutrophils 53.6 % (42.0-75.0); Hematocrit 45.4 % (42.0-52.0); Hemoglobin 14.6 g/dL (14.0-18.0); Mean Corpuscular Hemoglobin 29.3 pg (27.0-31.0); Mean Corpuscular Volume 91.0 fL (78.0-98.0); Platelet Count 421 10x3/uL (130-400); Red Blood Cell (RBC) Count 4.99 mill/uL (4.70-6.10); White Blood Cell (WBC) Count 7.68 10x3/uL (4.8-10.8)
[2024-10-19 05:05] LABS: INR-International Normal Ratio 1.1; PTT 39.0 sec (22.9-36.1); Prothrombin Time 14.8 sec (12.0-14.7)
[2024-10-19 05:13] LABS: ALT (SGPT) 1914 U/L (Less than 45); AST (SGOT) 1350 U/L (11-34); Albumin 3.0 g/dL (3.1-4.5); Alkaline Phosphatase 293 U/L (40-110); Anion Gap 15 mmol/L (10-20); BUN (Urea Nitrogen) 32 mg/dL (8.4-25.7); Bilirubin, Total 0.5 mg/dL (0.3-1.2); Calc. Creatinine Clearance 86 mL/min (70-130); Calcium 9.1 mg/dL (7.8-10.44); Carbon Dioxide 27 mmol/L (23-31); Chloride 101 mmol/L (98-107); Globulin 3.4 g/dL (2.4-3.5); Glucose 162 mg/dL (80-115); Potassium 3.3 mmol/L (3.5-5.1); Sodium 140 mmol/L (136-145)
[2024-10-19] MEDS: Transdermal Patch Removal TOP SCH (09:04)
[2024-10-20 06:42] LABS: #Basophils 0.06 10x3/uL (0.0-0.2); #Eosinophils 0.24 10x3/uL (0.0-0.7); #Monocytes 0.61 10x3/uL (0.11-0.59); #Neutrophils 3.63 10x3/uL (1.40-6.50); %Basophils 0.8 % (0.0-1.0); %Eosinophils 3.2 % (0.0-10.0); %Lymphocytes 39.6 % (21.0-51.0); %Monocytes 8.0 % (0.0-10.0); %Neutrophils 47.9 % (42.0-75.0); Hematocrit 46.7 % (42.0-52.0); Hemoglobin 14.8 g/dL (14.0-18.0); Mean Corpuscular Hemoglobin 29.0 pg (27.0-31.0); Mean Corpuscular Volume 91.6 fL (78.0-98.0); Platelet Count 432 10x3/uL (130-400); Red Blood Cell (RBC) Count 5.10 mill/uL (4.70-6.10); White Blood Cell (WBC) Count 7.58 10x3/uL (4.8-10.8)
[2024-10-20 07:03] LABS: ALT (SGPT) 1559 U/L (Less than 45); AST (SGOT) 690 U/L (11-34); Albumin 3.1 g/dL (3.1-4.5); Alkaline Phosphatase 272 U/L (40-110); Anion Gap 15 mmol/L (10-20); BUN (Urea Nitrogen) 29 mg/dL (8.4-25.7); Bilirubin, Total 0.5 mg/dL (0.3-1.2); Calc. Creatinine Clearance 100 mL/min (70-130); Calcium 9.0 mg/dL (7.8-10.44); Carbon Dioxide 28 mmol/L (23-31); Chloride 100 mmol/L (98-107); Globulin 3.4 g/dL (2.4-3.5); Glucose 101 mg/dL (80-115); Potassium 4.0 mmol/L (3.5-5.1); Sodium 139 mmol/L (136-145)
[2024-10-20 07:06] LABS: INR-International Normal Ratio 1.1; PTT 38.4 sec (22.9-36.1); Prothrombin Time 13.9 sec (12.0-14.7)
[2024-10-20 21:25] VITALS: BMI 21.8
[2024-10-21 04:56] LABS: #Basophils 0.05 10x3/uL (0.0-0.2); #Eosinophils 0.19 10x3/uL (0.0-0.7); #Monocytes 0.58 10x3/uL (0.11-0.59); #Neutrophils 3.49 10x3/uL (1.40-6.50); %Basophils 0.7 % (0.0-1.0); %Eosinophils 2.6 % (0.0-10.0); %Lymphocytes 40.1 % (21.0-51.0); %Monocytes 8.0 % (0.0-10.0); %Neutrophils 48.2 % (42.0-75.0); Hematocrit 47.1 % (42.0-52.0); Hemoglobin 15.2 g/dL (14.0-18.0); Mean Corpuscular Hemoglobin 29.2 pg (27.0-31.0); Mean Corpuscular Volume 90.6 fL (78.0-98.0); Platelet Count 377 10x3/uL (130-400); Red Blood Cell (RBC) Count 5.20 mill/uL (4.70-6.10); White Blood Cell (WBC) Count 7.24 10x3/uL (4.8-10.8)
[2024-10-21 05:33] LABS: INR-International Normal Ratio 1.1; PTT 37.0 sec (22.9-36.1); Prothrombin Time 13.8 sec (12.0-14.7)
[2024-10-21 05:38] LABS: ALT (SGPT) 1131 U/L (Less than 45); AST (SGOT) 337 U/L (11-34); Albumin 3.1 g/dL (3.1-4.5); Alkaline Phosphatase 243 U/L (40-110); Anion Gap 14 mmol/L (10-20); BUN (Urea Nitrogen) 34 mg/dL (8.4-25.7); Bilirubin, Total 0.5 mg/dL (0.3-1.2); Calc. Creatinine Clearance 97 mL/min (70-130); Calcium 9.1 mg/dL (7.8-10.44); Carbon Dioxide 30 mmol/L (23-31); Chloride 99 mmol/L (98-107); Globulin 3.4 g/dL (2.4-3.5); Glucose 96 mg/dL (80-115); Potassium 4.1 mmol/L (3.5-5.1); Sodium 139 mmol/L (136-145)
[2024-10-22 06:28] LABS: #Basophils 0.05 10x3/uL (0.0-0.2); #Eosinophils 0.13 10x3/uL (0.0-0.7); #Monocytes 0.55 10x3/uL (0.11-0.59); #Neutrophils 3.27 10x3/uL (1.40-6.50); %Basophils 0.7 % (0.0-1.0); %Eosinophils 1.9 % (0.0-10.0); %Lymphocytes 39.8 % (21.0-51.0); %Monocytes 8.2 % (0.0-10.0); %Neutrophils 49.1 % (42.0-75.0); Hematocrit 46.9 % (42.0-52.0); Hemoglobin 14.9 g/dL (14.0-18.0); Mean Corpuscular Hemoglobin 29.0 pg (27.0-31.0); Mean Corpuscular Volume 91.2 fL (78.0-98.0); Platelet Count 345 10x3/uL (130-400); Red Blood Cell (RBC) Count 5.14 mill/uL (4.70-6.10); White Blood Cell (WBC) Count 6.68 10x3/uL (4.8-10.8)
[2024-10-22 06:39] LABS: ALT (SGPT) 841 U/L (Less than 45); AST (SGOT) 178 U/L (11-34); Albumin 3.3 g/dL (3.1-4.5); Alkaline Phosphatase 217 U/L (40-110); Anion Gap 14 mmol/L (10-20); BUN (Urea Nitrogen) 34 mg/dL (8.4-25.7); Bilirubin, Total 0.5 mg/dL (0.3-1.2); Calc. Creatinine Clearance 84 mL/min (70-130); Calcium 9.0 mg/dL (7.8-10.44); Carbon Dioxide 31 mmol/L (23-31); Chloride 98 mmol/L (98-107); Globulin 3.2 g/dL (2.4-3.5); Glucose 96 mg/dL (80-115); Potassium 4.1 mmol/L (3.5-5.1); Sodium 139 mmol/L (136-145)
[2024-10-22] MEDS ORDERED: Senokot 8.6 MG TAB PO PRN (07:16)
[2024-10-22] MEDS: Senokot 8.6 MG TAB PO SCH (08:50)
[2024-10-22] MEDS: Apixaban 5 MG TAB PO SCH (19:54)
[2024-10-23 10:10] LABS: #Basophils 0.06 10x3/uL (0.0-0.2); #Eosinophils 0.13 10x3/uL (0.0-0.7); #Monocytes 0.66 10x3/uL (0.11-0.59); #Neutrophils 3.55 10x3/uL (1.40-6.50); %Basophils 0.9 % (0.0-1.0); %Eosinophils 1.9 % (0.0-10.0); %Lymphocytes 36.4 % (21.0-51.0); %Monocytes 9.5 % (0.0-10.0); %Neutrophils 50.9 % (42.0-75.0); Hematocrit 44.8 % (42.0-52.0); Hemoglobin 14.2 g/dL (14.0-18.0); Mean Corpuscular Hemoglobin 28.9 pg (27.0-31.0); Mean Corpuscular Volume 91.2 fL (78.0-98.0); Platelet Count 314 10x3/uL (130-400); Red Blood Cell (RBC) Count 4.91 mill/uL (4.70-6.10); White Blood Cell (WBC) Count 6.96 10x3/uL (4.8-10.8)
[2024-10-23 10:29] LABS: ALT (SGPT) 563 U/L (Less than 45); AST (SGOT) 96 U/L (11-34); Albumin 3.1 g/dL (3.1-4.5); Alkaline Phosphatase 179 U/L (40-110); Anion Gap 11 mmol/L (10-20); BUN (Urea Nitrogen) 36 mg/dL (8.4-25.7); Bilirubin, Total 0.5 mg/dL (0.3-1.2); Calc. Creatinine Clearance 102 mL/min (70-130); Calcium 9.0 mg/dL (7.8-10.44); Carbon Dioxide 31 mmol/L (23-31); Chloride 102 mmol/L (98-107); Globulin 3.2 g/dL (2.4-3.5); Glucose 88 mg/dL (80-115); Potassium 3.7 mmol/L (3.5-5.1); Sodium 140 mmol/L (136-145)
[2024-10-23 14:12] VITALS: BP 103/67; TEMP 98.2
== END 2024-10-23 14:20 | disposition home or self-care (01) | DRG 280 ==
LOC: ERS 21:22 → OBS 23:15
PROVIDERS: ADMIT Emergency Medicine; ATTEND Emergency Medicine
DX: I48.92 Unspecified atrial flutter (principal); I50.23 Acute on chronic systolic (congestive) heart failure; I21.A1 Myocardial infarction type 2; J96.01 Acute respiratory failure with hypoxia; I50.22 Chronic systolic (congestive) heart failure; R07.89 Other chest pain; E87.6 Hypokalemia; D69.6 Thrombocytopenia, unspecified; E78.5 Hyperlipidemia, unspecified; M54.12 Radiculopathy, cervical region; I42.0 Dilated cardiomyopathy; F10.10 Alcohol abuse, uncomplicated; I25.10 Atherosclerotic heart disease of native coronary artery without angina pectoris; I11.0 Hypertensive heart disease with heart failure; I42.8 Other cardiomyopathies; Z79.82 Long term (current) use of aspirin; Z79.899 Other long term (current) drug therapy
CPT/HCPCS: 36415; 71045; 71275; 76705; 80053; 80061; 80074; 80306; 81001; 82805; 82977; 83036; 83605; 83735; 83880; 84100; 84443; 84484; 85025; 85610; 85730; 86015; 86038; 86225; 87040; 87077; 87149; 87186; 93005; 93010; 93306; 96374; 96375; J0282; J0692; J0696; J1650; J1940; J3411; J3480; J7070; Q9967